=== PATIENT | female | born 1980 | race Hispanic/Latino ===

== ENCOUNTER 2025-07-17 19:36 | Emergency (ER) | payer SELFPAY ==
[2025-07-17] MEDS ORDERED: Acetaminophen 500 MG TAB ONE (20:02)
[2025-07-17] MEDS ORDERED: Ibuprofen 200 MG TAB ONE (20:59)
== END 2025-07-17 21:30 | disposition home or self-care (01) ==
LOC: CSHERS 19:36
DX: J06.9 Acute upper respiratory infection, unspecified (principal); H65.92 Unspecified nonsuppurative otitis media, left ear; I10 Essential (primary) hypertension
CPT/HCPCS: 87428; 99283